=== PATIENT | female | born 1960 ===

== ENCOUNTER 2025-06-06 09:41 | Emergency (ER) | payer MEDICAID ==
[~2025-06-06] VITALS: Ht 154.9 cm; Wt 64.0 kg
--- NOTE | 2025-06-06 10:08 | Physician Documentation ---
History of Present Illness General Chief Complaint: Abdominal Pain Stated Complaint: STOMACH PAIN Time Seen by MD: 10:07 Source: patient, electrical mechanical technician Mode of Arrival: POV Exam Limitations: language barrier History of Present Illness Initial Comments 64 year old female presents to the emergency department for complaints of abdominal pain that has been worsening over the past week. Patient states that she has a history of abdominal pain as it is constant. She states that this past week her pain has been worsening, resulting in her being unable to sleep. She describes her pain as dull. She states that after she eats she will feel nauseous. She states that nothing effects her abdominal pain. She denies any issues urinating or defecating. Of note, patient spoke mandarin and there was a digital edi analyst at bedside. Medication Reconciliation Allergies: Coded Allergies: No Known Allergies (Unverified , 06/06/25) Scheduled PRN ONDANSETRON ODT 4mg tablet (Ondansetron Odt), 1 TABLET PO Q6H PRN for nausea/vomiting Past Medical History Past Medical History: *GI/HEPATOBILIARY* Review of Systems All Other Systems at this time: Reviewed and Negative ROS Patient was asked, but denied any other symptoms. All other systems are negative other than those mentioned above. Physical Exam Physical Exam Vital Signs: RN Vital Signs have been reviewed: Yes, Temperature: 97.8, Heart Rate: 78, Respiratory Rate: 16, BP: 156/78, Pulse Oximetry: 100, Weight: 64.000 Oxygen Flow Rate: 0 Pulse Oximetry Reflects: adequate oxygenation Physical Exam VITALS: Reviewed and as above. GENERAL: Alert, no apparent distress. HEENT: Normocephalic, atraumatic. PERRL, EOMI. Dry mucosa, no erythema. RESPIRATORY: Lungs clear, normal breath sounds, no respiratory distress. CHEST: No accessory muscle use, no retractions. CV: Regular rate and rhythm. No edema, no murmur, No: JVD GI: Mild diffuse abdominal tenderness, bowel sounds present. No rebound, guarding, or rigidity. BACK: No CVA tenderness, no swelling. MUSCULOSKELETAL: No deformities, no edema SKIN: Warm and dry, no rash. NEURO: Oriented x4. No motor or sensory deficit. PSYCH: Normal mood and affect, no agitation. Progress Results/Orders Results/Orders Orders - OHLJOSH ONTIVEROS MD Ct Abdomen Pelvis (06/06/25 10:35) Completed Orders - OHLFS,JOSH Davis MD Hcg, Ur Ql (06/06/25 09:54) Cbc/Diff (06/06/25 09:54) BMP (06/06/25 09:54) Lipase (06/06/25 09:54) CMP (06/06/25 09:54) Procalcitonin (06/06/25 10:12) Ct Abdomen Pelvis (06/06/25 10:35) Ua W/Microscopic, Cult If Ind (06/06/25 10:11) Electrocardiogram (06/06/25 11:16) Vital Signs 06/06/25 06/06/25 06/06/25 06/06/25 09:49 10:18 10:26 12:37 Temp 97.8 97.8 97.8 Pulse 78 71 82 Resp 16 16 16 B/P (MAP) 156/78 151/75 (100) 133/69 Pulse Ox 100 100 99 O2 Flow Rate 0 0 Laboratory Tests Test 06/06/25 10:11 White Blood Count 5.2 Red Blood Count 4.69 Hemoglobin 13.4 Hematocrit 40.7 Mean Corpuscular Volume 86.7 Mean Corpuscular Hemoglobin 28.5 Mean Corpuscular Hemoglobin Concent 32.9 L Red Cell Distribution Width 14.0 Platelet Count 256 Mean Platelet Volume 8.1 Neutrophils (%) (Auto) 63.8 Lymphocytes (%) (Auto) 27.7 Monocytes (%) (Auto) 7.6 Eosinophils (%) (Auto) 0.3 Basophils (%) (Auto) 0.6 Neutrophils # (Auto) 3.3 Lymphocytes # (Auto) 1.4 Monocytes # (Auto) 0.4 Eosinophils # (Auto) 0.0 Basophils # (Auto) 0.0 CBC Comment Urine Specimen Description Cln catch midstream Urine Color Yellow Urine Clarity Clear Urine pH 6.0 Urine Specific [place] 1.010 Urine Protein Negative Urine Glucose (UA) Negative Urine Ketones Negative Urine Occult Blood Small Urine Nitrite Negative Urine Bilirubin Negative Urine Urobilinogen 0.2 Urine Leukocyte Esterase Negative Urine RBC 3-10 Urine WBC 0-4 Urine Squamous Epithelial Cells Few Urine Bacteria Few Urine Culture Indicated Not ind Volume Urine Centrifuged 10 ml Urine HCG, Qualitative Negative Urine Comment Sodium Level 139 Potassium Level 3.7 Chloride Level 105 Carbon Dioxide Level 27.6 Anion Gap 6 L Blood Urea Nitrogen 10 Creatinine 0.64 Estimated GFR/1.73 m2 > 90 BUN/Creatinine Ratio 15.6 Glucose Level 111 H Calcium Level 8.9 Total Bilirubin 0.6 Aspartate Amino Transf (AST/SGOT) 23 Alanine Aminotransferase (ALT/SGPT) 12 Alkaline Phosphatase 88 Total Protein 8.4 H Albumin 3.8 Globulin 4.6 H Albumin/Globulin Ratio 0.8 L Lipase 34 Procalcitonin < 0.05 Chemistry Comments EKG/XRAY/CT/US/VASC/MRI CT : Impression EXAM: CT CT ABDOMEN PELVIS HISTORY: abd pain Comparison Study: None Exam Date: 06/06/2025 10:35 AM Radiation Dose Information: CT Dose: CTDI volume is 4 mGy. Dose-length product is 206 mGy*cm TECHNIQUE: Multidetector CT of the abdomen and pelvis was performed. Imaging was performed without IV contrast. Axial, coronal and sagittal multiplanar reformats were obtained from the axial data set by the technologist. FINDINGS: Lack of intravenous contrast compromises evaluation of perfusion and for isodense lesions. Lower chest: Clear. Liver: Unremarkable Biliary system: Unremarkable Spleen: Unremarkable Pancreas: Unremarkable. Adrenals: Unremarkable. Kidneys and ureters: No hydronephrosis. No renal or ureteral calculi. Bowel: No obstruction. Normal appendix. Bladder: Unremarkable Reproductive organs: No abnormal mass. Lymph nodes: Unremarkable. Peritoneum: Unremarkable Vessels: Patency not evaluated on this noncontrast study. Bones and soft tissue: No aggressive osseous lesion IMPRESSION: No acute CT findings in the abdomen and pelvis. Electronically Signed by:DIPIKA TOMLIN MD Date & Time: 06/06/[address] Driscoll Medical Decision Making Additional information obtaine: old records Findings 64-year-old female presents to the emergency room with chronic lower abdominal pain she has a benign exam her labs were reviewed they are unremarkable the patient has had this pain for quite some time, the patient's CT of the abdomen was reviewed and showed no acute pathology the patient has been advised to follow up as an outpatient. Vital signs has been reviewed. Previous hospitalizations has been reviewed. Differential Diagnosis Colitis small-bowel obstruction large-bowel obstruction enteritis, appendicitis Departure Time of Disposition: 12:07 Disposition: 01 HOME / SELF CARE / HOMELESS Impression: Primary Impression: Nonspecific abdominal pain Condition: Stable Discharge Instructions: Abdominal Pain (Nonspecific) Referrals: NO PRIMARY CARE PROVIDER (PCP) Prescriptions ONDANSETRON ODT 4mg tablet (ONDANSETRON ODT) 4 Mg Tab.rapdis 1 TABLET PO Q6H PRN for nausea/vomiting, #12 TABLET Prov: JOSH DRISCOLL MD 06/06/25 Education Educated: Patient, Family Educated regarding: diagnosis, treatment, need for follow up Signature Scribe Signature: Scribed by Scott Sutherland Attestation: The note accurately reflects work and decisions made by me.Josh Driscoll MD 06/07/25 09:40 JOSH DRISCOLL MD Jun 06, 2025 10:07
[2025-06-06 10:31] LABS: URINE HCG NEGATIVE (NEG)
[2025-06-06 10:34] LABS: LEUKOCYTE ESTERASE ,URINE NEGATIVE (Neg); NITRITES, URINE NEGATIVE (Neg); OCCULT BLOOD,URINE SMALL (Neg)
[2025-06-06 10:43] LABS: CREATININE 0.64 MG/DL (0.40-0.90); TOTAL CARBON DIOXIDE 27.6 MMOL/L (24-32); eCRCL 69 ML/MIN; eGFR > 90 ML/MIN
[2025-06-06 10:44] LABS: MEAN PLATELET VOLUME 8.1 FL (7.4-10.4); RED CELL DISTRIBUTION WIDTH 14.0 % (11.5-14.5)
[2025-06-06 10:47] LABS: UA COLLECTION TYPE CLN CATCH MIDSTREAM
[2025-06-06 10:48] LABS: SQUAMOUS EPITHELIAL CELL,UR FEW /LPF (FEW)
--- NOTE | 2025-06-06 11:03 | RADIOLOGY REPORT ---
EXAM: CT CT ABDOMEN PELVIS HISTORY: abd pain Comparison Study: None Exam Date: 06/06/2025 10:35 AM Radiation Dose Information: CT Dose: CTDI volume is 4 mGy. Dose-length product is 206 mGy*cm TECHNIQUE: Multidetector CT of the abdomen and pelvis was performed. Imaging was performed without IV contrast. Axial, coronal and sagittal multiplanar reformats were obtained from the axial data set by the technologist. FINDINGS: Lack of intravenous contrast compromises evaluation of perfusion and for isodense lesions. Lower chest: Clear. Liver: Unremarkable Biliary system: Unremarkable Spleen: Unremarkable Pancreas: Unremarkable. Adrenals: Unremarkable. Kidneys and ureters: No hydronephrosis. No renal or ureteral calculi. Bowel: No obstruction. Normal appendix. Bladder: Unremarkable Reproductive organs: No abnormal mass. Lymph nodes: Unremarkable. Peritoneum: Unremarkable Vessels: Patency not evaluated on this noncontrast study. Bones and soft tissue: No aggressive osseous lesion IMPRESSION: No acute CT findings in the abdomen and pelvis.
--- NOTE | 2025-06-06 11:55 | ELECTROCARDIOGRAPH REPORT ---
[facility], [place] Test Date: 2025-06-06 Test Time: 11:16:55 Pat Name: TANK CAMP Department: EMERGENCY ROOM Room: Gender: F Crook Operator: SHAHANA : 1960 Requested By: JOSH GILMAN Order Number: [id number] Reading MD: Dr. Aleksandar Ferrari Measurements Intervals Freer Rate: 75 P: 75 IA: 121 QRS: 73 QRSD: 90 T: 27 QT: 427 QTc: 477 Interpretive Statements Sinus rhythm Baseline wander in lead(s) V2 Electronically Signed On 06-08-2025 21:14:[address] Aleksandar Ferrari Please click the below link to view image of tracing.
[2025-06-06] MEDS ORDERED: ONDA-243 PO (12:26)
[2025-06-06 12:37] VITALS: BP 133/69; PULSE 82; RESP 16; TEMP 97.8; O2SAT 99
== END 2025-06-06 12:39 | disposition home or self-care (01) ==
LOC: ER 09:42
DX: R10.84 Generalized abdominal pain (principal)
CPT/HCPCS: 36415; 74176; 80053; 81001; 81025; 83690; 84145; 85025; 93005; 99284